=== PATIENT | male | born 1970 | race Caucasian/White ===

== ENCOUNTER → 2025-02-19 15:27 | Outpatient (BNVA) | payer OTHER, SELFPAY | PROVIDERS: Family Provider Family Medicine; PCP Family Medicine; Visit Provider Family Medicine | DX: E11.9 Type 2 diabetes mellitus without complications (principal); E03.9 Hypothyroidism, unspecified; M50.30 Other cervical disc degeneration, unspecified cervical region; M51.369 Other intervertebral disc degeneration, lumbar region without mention of lumbar back pain or lower extremity pain; G62.9 Polyneuropathy, unspecified | CPT/HCPCS: 80053; 80061; 82172; 82306; 82607; 83036; 83735; 84436; 84443; 84481; 85025 ==